=== PATIENT | female | born 1985 | race Caucasian/White ===

== ENCOUNTER 2020-06-24 12:17 | Emergency (ER) | payer MEDICAID ==
[~2020-06-24] VITALS: Ht 160 cm; Wt 101.7 kg
--- NOTE | 2020-06-24 13:10 | NUR ---
PT C/O "BLACKING OUT" YESTERDAY AT [facility]. EMS ASSESSED PT, PT STATES HAD LOW BP. PT REFUSED TRANSPORT TO HOSPITAL BY EMS. PT STATES COXXYX PAIN. PT HAS BEEN HAVING SORE THROAT, SEEN AT AND IS COMPLIANT WITH MEDS. PT CONNECTED TO MONITORING. CALL LIGHT IN REACH. ERMD AT BEDSIDE FOR ASSESSMENT.
[2020-06-24] MEDS ORDERED: DEXAMETHASONE 4 MG/ML, 1ML IV ONE (13:30)
[2020-06-24] MEDS ORDERED: HYDROmorphone 1 MG/ML, 1ML INJ IVPush PRN (13:30)
[2020-06-24] MEDS ORDERED: SODIUM CHLORIDE 0.9% 1,000ML IVBOLUS ONE (13:30)
[2020-06-24] MEDS ORDERED: SODIUM CHLORIDE FLUSH 10ML SYR IVF ONE (13:30)
--- NOTE | 2020-06-24 13:39 | NUR ---
PT TO X RAY NOW
[2020-06-24] MEDS ORDERED: HYDROmorphone 1 MG/ML, 1ML INJ ONE (14:00)
[2020-06-24] MEDS ORDERED: DEXAMETHASONE 4 MG/ML, 5ML ONE (14:00)
[2020-06-24 14:22] LABS: BASOPHILS % (AUTO) 1 % (0-1); EOSINOPHILS % (AUTO) 1 % (1-7); LYMPHOCYTES % (AUTO) 23 % (22-44); MEAN CORPUSCULAR HEMOGLOBIN 29.3 pg (27.0-34.8); MEAN CORPUSCULAR HGB CONC 33.3 g/dL (32.4-35.8); MEAN PLATELET VOLUME 8.8 fL (7.4-10.4); MONOCYTES % (AUTO) 8 % (2-9); NEUTROPHILS % (AUTO) 68 % (42-75); PLATELET COUNT 354 x10^3/uL (130-400); RED BLOOD COUNT 4.91 x10^6/uL (3.82-5.3); RED CELL DISTRIBUTION WIDTH 13.4 % (9.6-15.2)
[2020-06-24 14:23] LABS: MD NO
[2020-06-24] MEDS ORDERED: BICILLIN-LA 1,200,000 UNITS/2 ML IM ONE (14:30)
[2020-06-24 14:32] LABS: ALBUMIN 3.2 g/dL (3.4-5.0); ANION GAP 6 mmol/L (5-15); CALCIUM 8.8 mg/dL (8.5-10.1); CHLORIDE 101 mmol/L (98-107); CREATININE 0.68 mg/dL (0.55-1.02)
[2020-06-24 14:49] VITALS: BP 121/78
--- NOTE | 2020-06-24 14:50 | NUR ---
PT BACK FROM CT
== END 2020-06-24 16:11 | disposition home or self-care (01) ==
LOC: ED 16:00
DX: J02.0 Streptococcal pharyngitis (principal); R00.0 Tachycardia, unspecified; R55 Syncope and collapse
CPT/HCPCS: 36415; 72192; 72220; 80048; 82040; 85025; 86308; 87880; 93005; 96361; 96374; 96375; 99285; J1100; J1170; J7030

== ENCOUNTER 2020-07-24 06:48 | Emergency (ER) | payer MEDICAID ==
[~2020-07-24] VITALS: Ht 157.5 cm; Wt 105.8 kg
--- NOTE | 2020-07-24 07:07 | NUR ---
NAI LE SWELLING "ITHINK I HAVE BLOOD CLOTS IN BOTH MY LEGS" PAIN IN FEET AND LEGS X5 DAYS. PT STATES SHE'S HAD A BLOOD CLOT BEFORE. NO OBVIOUS SWELLING OR REDDNESS OBSERVED BY THIS RN IN BOTH LEGS. CMS INTACT AND +2 PEDAL PULSES FELT IN BLE. WHILE PT GETTING UNDRESSED LARGE BAG OF [place] FEEL OUT OF JACKET. PT STATES "THATS NOT MINE. IM HOLDING THAT FOR A FRIEND." ALL BLONGINGS PLACED IN PT BELONGING BAG AND TIED CLOSED. HARLEY RAMIREZ AT BEDSIDE FOR EVALUATION
--- NOTE | 2020-07-24 07:22 | NUR ---
PT ATTACHED TO ALL MONITORS. VSS. WEEKS.
[2020-07-24 07:28] LABS: BASOPHILS % (AUTO) 1 % (0-1); EOSINOPHILS % (AUTO) 2 % (1-7); LYMPHOCYTES % (AUTO) 37 % (22-44); MEAN CORPUSCULAR HEMOGLOBIN 29.6 pg (27.0-34.8); MEAN CORPUSCULAR HGB CONC 33.4 g/dL (32.4-35.8); MEAN PLATELET VOLUME 8.6 fL (7.4-10.4); MONOCYTES % (AUTO) 9 % (2-9); NEUTROPHILS % (AUTO) 51 % (42-75); PLATELET COUNT 309 x10^3/uL (130-400); RED BLOOD COUNT 4.33 x10^6/uL (3.82-5.3)
[2020-07-24] MEDS ORDERED: KETOROLAC 30 MG/1 ML ONE (07:28)
[2020-07-24 07:29] LABS: MD NO
[2020-07-24] MEDS ORDERED: HYDROcodone/APAP 5/325 TABLET ONE (07:29)
[2020-07-24] MEDS ORDERED: KETOROLAC 30 MG/1 ML IM ONE (07:30)
[2020-07-24] MEDS ORDERED: HYDROcodone/APAP 5/325 TABLET PO ONE (07:30)
--- NOTE | 2020-07-24 07:32 | NUR ---
US AT BEDSIDE.
[2020-07-24 07:36] LABS: ALANINE AMINOTRANSFERASE 20 U/L (12-78); ALBUMIN 3.2 g/dL (3.4-5.0); ANION GAP 5 mmol/L (5-15); CALCIUM 8.2 mg/dL (8.5-10.1); CHLORIDE 107 mmol/L (98-107); CREATININE 0.66 mg/dL (0.55-1.02)
[2020-07-24 07:40] LABS: ALKALINE PHOSPHATASE 74 U/L (45-117); BILIRUBIN,TOTAL 0.3 mg/dL (0.2-1.0); TOTAL PROTEIN 6.8 g/dL (6.4-8.2)
[2020-07-24 08:22] VITALS: BP 118/74
--- NOTE | 2020-07-24 08:41 | NUR ---
Patientgiven discharge instructions and they have confirmed that they understand the instructions. Patient ambulatory with steady gait with all belongings.
== END 2020-07-24 08:42 | disposition home or self-care (01) ==
LOC: ED 07:49
DX: M79.661 Pain in right lower leg (principal); M79.662 Pain in left lower leg; R60.0 Localized edema; R07.89 Other chest pain; K21.9 Gastro-esophageal reflux disease without esophagitis; F17.200 Nicotine dependence, unspecified, uncomplicated
CPT/HCPCS: 36415; 71045; 80053; 83880; 85025; 93005; 93970; 96372; 99285; J1885

== ENCOUNTER 2020-08-12 11:34 | Emergency (ER) | payer MEDICAID ==
[~2020-08-12] VITALS: Ht 160 cm; Wt 103.0 kg
[2020-08-12 11:38] VITALS: BP 170/68
[2020-08-12 12:07] LABS: MICROSCOPIC AUTO
[2020-08-12 12:09] LABS: BASOPHILS % (AUTO) 1 % (0-1); EOSINOPHILS % (AUTO) 2 % (1-7); LYMPHOCYTES % (AUTO) 41 % (22-44); MEAN CORPUSCULAR HEMOGLOBIN 29.8 pg (27.0-34.8); MEAN CORPUSCULAR HGB CONC 33.3 g/dL (32.4-35.8); MEAN PLATELET VOLUME 8.5 fL (7.4-10.4); MONOCYTES % (AUTO) 6 % (2-9); NEUTROPHILS % (AUTO) 50 % (42-75); PLATELET COUNT 355 x10^3/uL (130-400); RED BLOOD COUNT 4.74 x10^6/uL (3.82-5.3); RED CELL DISTRIBUTION WIDTH 14.1 % (9.6-15.2)
[2020-08-12 12:16] LABS: ALANINE AMINOTRANSFERASE 30 U/L (12-78); ALBUMIN 3.4 g/dL (3.4-5.0); ANION GAP 6 mmol/L (5-15); CALCIUM 8.5 mg/dL (8.5-10.1); CHLORIDE 105 mmol/L (98-107); MD NO
[2020-08-12 12:21] LABS: ALKALINE PHOSPHATASE 78 U/L (45-117); BILIRUBIN,TOTAL 0.5 mg/dL (0.2-1.0); TOTAL PROTEIN 7.5 g/dL (6.4-8.2)
--- NOTE | 2020-08-12 12:30 | NUR ---
[employer]IDE [employer]: PT TO ROOM FROM LOBBY
[2020-08-12] MEDS ORDERED: ONDANSETRON ODT 4 MG ONE (12:59)
[2020-08-12] MEDS ORDERED: ONDANSETRON ODT 4 MG PO ONE (13:00)
--- NOTE | 2020-08-12 13:19 | NUR ---
Patient given discharge instructions and they have confirmed that they understand the instructions. Patient ambulatory with steady gait.
== END 2020-08-12 13:24 | disposition home or self-care (01) ==
LOC: ED 11:43
DX: N30.01 Acute cystitis with hematuria (principal); K21.9 Gastro-esophageal reflux disease without esophagitis
CPT/HCPCS: 36415; 80053; 81001; 84703; 85025; 87077; 87086; 87186; 99283; Q0162

== ENCOUNTER 2020-09-07 01:29 | Emergency (ER) | payer MEDICAID ==
[~2020-09-07] VITALS: Ht 160 cm; Wt 102.0 kg
[2020-09-07 01:31] VITALS: BP 148/80
--- NOTE | 2020-09-07 03:11 | NUR ---
PT. SIGNED FORM FOR REQUEST FOR D/C. PT. UNWILLING TO WAIT IN LOBBY.
== END 2020-09-07 03:14 | disposition left against medical advice (07) ==
LOC: ED 01:50
DX: M79.662 Pain in left lower leg (principal); Z53.21 Procedure and treatment not carried out due to patient leaving prior to being seen by health care provider